=== PATIENT | female | born 1990 | race Caucasian/White ===

== ENCOUNTER 2020-07-11 11:28 | Emergency (ER) | payer OTHER ==
[~2020-07-11] VITALS: Ht 165.1 cm; Wt 115.4 kg
[2020-07-11] MEDS ORDERED: BUSPIRONE HCL10 MG PO (11:45)
[2020-07-11] MEDS ORDERED: VENLAFAXINE HC100 MG (11:45)
[2020-07-11] MEDS ORDERED: SEROQUEL100 MG PO (11:45)
[2020-07-11] MEDS ORDERED: TRINTELLIX20 MG PO (11:45)
[2020-07-11] MEDS ORDERED: FAMOTIDINE 20 MG/2 ML VIAL IV STA (12:22)
[2020-07-11] MEDS ORDERED: ONDANSETRON HCL INJ 2MG/ML 2ML 2 MG/ML VIAL ONE (12:27)
[2020-07-11] MEDS ORDERED: SODIUM CHLORIDE 0.9% 1000ML 1,000 ML ONE (12:27)
[2020-07-11] MEDS ORDERED: SODIUM CHLORIDE 0.9% 1000ML 1,000 ML IV SCH (12:30)
[2020-07-11] MEDS ORDERED: ONDANSETRON ODT4 MG PO (13:15)
[2020-07-11] MEDS ORDERED: FAMOTIDINE20 MG PO (13:16)
[2020-07-11] MEDS ORDERED: PANTOPRAZOLE SO40 MG PO (13:17)
[2020-07-11] MEDS ORDERED: FAMOTIDINE 20 MG/2 ML VIAL IV ONE (13:27)
[2020-07-11 13:50] VITALS: BP 101/56
== END 2020-07-11 13:42 | disposition home or self-care (01) ==
LOC: FSED 12:05
DX: R11.2 Nausea with vomiting, unspecified (principal); K29.70 Gastritis, unspecified, without bleeding; N20.0 Calculus of kidney; F60.9 Personality disorder, unspecified; F17.210 Nicotine dependence, cigarettes, uncomplicated
CPT/HCPCS: 80053; 81003; 81025; 85025; 96374; 96375; 99283; J2405; J7030

== ENCOUNTER 2020-12-04 14:33 | Emergency (ER) | payer OTHER ==
[~2020-12-04] VITALS: Ht 165.1 cm; Wt 108.9 kg
[~2020-12-04 14:33] MED LIST: BUSPIRONE HCL10 MG PO; FAMOTIDINE20 MG PO; ONDANSETRON ODT4 MG PO; PANTOPRAZOLE SO40 MG PO; SEROQUEL100 MG PO; TRINTELLIX20 MG PO; VENLAFAXINE HC100 MG
[2020-12-04] MEDS: BACITRACIN ZINC 0.9GM TP ONE (17:07)
== END 2020-12-04 17:09 | disposition home or self-care (01) ==
LOC: FSED 16:46
DX: S61.217A Laceration without foreign body of left little finger without damage to nail, initial encounter (principal); W45.8XXA Other foreign body or object entering through skin, initial encounter; F17.200 Nicotine dependence, unspecified, uncomplicated
CPT/HCPCS: 99283